=== PATIENT | female | born 1965 ===

== ENCOUNTER 2018-08-30 12:09 | Outpatient (CLI) | payer OTHER ==
[2018-08-31] MEDS ORDERED: AVAPRO75 MG (14:59)
== END 2018-08-30 15:26 | disposition home or self-care (01) ==
LOC: SONOGRAMA 12:09
DX: R19.00 Intra-abdominal and pelvic swelling, mass and lump, unspecified site (principal)

== ENCOUNTER 2018-08-31 14:04 | Outpatient (CLI) | payer OTHER ==
[2018-08-31] MEDS ORDERED: AVAPRO75 MG (14:59)
== END 2018-08-31 14:05 | disposition home or self-care (01) ==
LOC: TOM 14:04
DX: R19.00 Intra-abdominal and pelvic swelling, mass and lump, unspecified site (principal)

== ENCOUNTER 2018-08-31 14:48 | Emergency (ER) | payer OTHER ==
[~2018-08-31] VITALS: Ht 160 cm; Wt 77.1 kg
[2018-08-31] MEDS ORDERED: AVAPRO75 MG (14:59)
== END 2018-08-31 17:11 | disposition home or self-care (01) ==
LOC: ER 14:48
DX: K57.90 Diverticulosis of intestine, part unspecified, without perforation or abscess without bleeding (principal)

== ENCOUNTER 2021-07-16 06:00 | Day surgery (SDC) | payer OTHER ==
[~2021-07-16 06:00] MED LIST: AVAPRO75 MG PO
== END 2021-07-16 12:00 | disposition home or self-care (01) ==
LOC: CIR.AMB 06:00
PROVIDERS: ATTEND Orthopaedic Surgery
DX: M75.121 Complete rotator cuff tear or rupture of right shoulder, not specified as traumatic (principal); Z91.013 Allergy to seafood; M19.011 Primary osteoarthritis, right shoulder; Z20.822 Contact with and (suspected) exposure to COVID-19; I10 Essential (primary) hypertension; Z86.16 Personal history of COVID-19; K21.9 Gastro-esophageal reflux disease without esophagitis

== ENCOUNTER 2022-12-16 13:05 | Outpatient (CLI) | payer OTHER | END 2022-12-16 13:17 | disposition home or self-care (01) | LOC: TOM 13:05 | PROVIDERS: ATTEND Radiology Diagnostic Radiology | DX: K57.32 Diverticulitis of large intestine without perforation or abscess without bleeding (principal); K57.90 Diverticulosis of intestine, part unspecified, without perforation or abscess without bleeding; K57.30 Diverticulosis of large intestine without perforation or abscess without bleeding ==

== ENCOUNTER 2023-11-04 08:48 | Outpatient (CLI) | payer OTHER | END 2023-11-04 08:54 | disposition home or self-care (01) | LOC: TOM 08:48 | PROVIDERS: ATTEND Radiology Diagnostic Radiology | DX: R10.9 Unspecified abdominal pain (principal); R10.2 Pelvic and perineal pain ==